=== PATIENT | female | born 1985 | race Caucasian/White ===

== ENCOUNTER 2016-03-29 15:55 | Emergency (ER) | payer BC ==
[2016-03-29 16:09] VITALS: BP 139/95
--- NOTE | 2016-03-29 16:47 | UC ---
Skin Complaint HPI - HPI Summary HPI Summary: The patient comes in today for: 1. Rash: Onset: 3.5 weeks. Palliative/provocative: Prednisone helped it. When she is hot, the rash is worse as is the itching. Quality: Itching. Region: Upper thighs, across the chest and stomach. Severity: 8/10, but she is not scratching much. Time: Constant, with flares. Associated symptoms: Previous treatment: She had a treatment of Prednisone (strength per pill unknown), but she was on a 6-5-4-3-2-1 dosing. She finished this 4 days ago. This treatment helped. But, the rash has come back. She has taken Benadryl at night, but she wakes up itching. Topical hydrocortisone did not help. She had blood work done last week for checking the liver studies and these were OK. Itching: Present. Previous diagnosis: Not mentioned. Initially, it was thought to be PUPPP by the commercial credit specialist, but the nurse practitioner said that it was not PUPPP, but "an allergic reaction." She is 30-31 weeks . * - History of Current Complaint Chief Complaint: UCRash Time Seen by Provider: 03/29/16 16:36 Stated Complaint: RASH Hx Obtained From: Patient Hx Last Menstrual Period: July of 2015 ?: Yes - Allergy/Home Medications Allergies/Adverse Reactions: Allergies Allergy/AdvReac Type Severity Reaction Status Date / Time Acetaminophen [From Vicodin] Allergy PUFFY EYES Verified 03/29/16 16:09 Hydrocodone [From Vicodin] Allergy PUFFY EYES Verified 03/29/16 16:09 Pseudoephedrine Allergy HEART RACES Verified 03/29/16 16:09 [From Sudafed] SEASONAL ENVIRONMENT/HAYFEVER Allergy ITCHY Uncoded 03/15/15 10:07 WATERY EYES, SNEEZING Home Medications: Home Medications Cortisone Cream 2%* PRN 03/29/16 [History] Vitamin TAB* 1 tab PO DAILY 03/29/16 [History Confirmed 03/29/16] diPHENhydraMINE PO* [Benadryl PO*] 25 mg PO PRN 03/29/16 [History] Review of Systems Constitutional: Negative Skin: Rash Eyes: Negative ENT: Negative Respiratory: Negative Cardiovascular: Negative Gastrointestinal: Negative Genitourinary: Negative All Other Systems Reviewed And Are Negative: Yes PMH/Surg Hx/FS Hx/Imm Hx Endocrine History Of: Denies: Diabetes, Thyroid Disease, Hyperthyroidism, Hypothyroidism, Dyslipidemia Cardiovascular History Of: Denies: Cardiac Disorders, Hypertension, Pacemaker/ICD, Myocardial Infarction , Congestive Heart Failure, Atrial Fibrillation, Deep Vein Thrombosis, Bleeding Disorders Respiratory History Of: Denies: COPD, Asthma, Bronchitis, Pneumonia, Pulmonary Embolism GI/ History Of: Denies: Gastroesophageal Reflux, Ulcer, Gastrointestinal Bleed, Gall Bladder Disease, Kidney Stones, Diverticulitis, Renal Disease, Urosepsis Neurological History Of: Denies: TIA, CVA, Dementia, Seizures, Migraine Psychological History Of: Reports: Anxiety - NO MEDS, Depression Denies: Bipolar Disorder, Schizophrenia, Post Traumatic Stress Disorder Cancer History Of: Denies: Lung Cancer, Colorectal Cancer, Breast Cancer, Prostate Cancer, Cervical Cancer Other History Of: Negative For: HIV, Hepatitis B, Hepatitis C, Anticoagulant Therapy - Surgical History Surgical History: Yes Surgery Procedure, Year, and Place: 2003 WISDOM TEETH EXTRACTION, OFFICE, D&C - Family History Known Family History: Positive: Hypertension Negative: Cardiac Disease - Social History Occupation: Employed Full-time Alcohol Use: None Alcohol Amount: NONE SINCE Substance Use Type: None Smoking Status (MU): Former Smoker Amount Used/How Often: OCCASIONALLY IN COLLEGE Have You Smoked in the Last Year: No Physical Exam Triage Information Reviewed: Yes Appearance: Well-Appearing, No Pain Distress, Well-Nourished Vital Signs: Initial Vital Signs Temp 99 F 03/29/16 16:04 Pulse 103 03/29/16 16:04 Resp 16 03/29/16 16:04 BP 139/95 03/29/16 16:04 Pulse Ox 100 03/29/16 16:04 Vital Signs Reviewed: Yes Eyes: Positive: Conjunctiva Clear. Negative: Discharge ENT: Positive: Hearing grossly normal. Negative: Pharyngeal erythema, Nasal congestion, Nasal drainage, TM bulging, TM dull, TM red, Tonsillar swelling, Tonsillar exudate Dental: Negative: Gross Decay/Caries @, Dental Fracture @ Neck: Positive: Supple, Nontender, No Lymphadenopathy. Negative: Nuchal Rigidity Respiratory: Positive: Chest non-tender, Lungs clear, No respiratory distress, No accessory muscle use. Negative: Crackles, Wheezing Cardiovascular: Positive: RRR, No Murmur Abdomen Description: Positive: Nontender, No Organomegaly, Soft. Negative: Distended, Guarding Musculoskeletal: Positive: Strength Intact, ROM Intact Neurological: Positive: Alert, Muscle Tone Normal Psychological: Positive: Age Appropriate Behavior, Consolable Skin: Positive: rashes - She has erythematous papules/plaques that are 2-3 mm in size and some confluent. Most of the rash is below the breasts. There are a few isolated lesions on her chest. None on the face or extremities. Some in the groin area and some on the abdomen. Course/Dx - Diagnoses Provider Diagnoses: Pruritic urticarial papules and plaques of . Discharge - Discharge Plan Condition: Stable Disposition: HOME Patient Education Materials: Pruritic Urticarial Papules and Plaques of (ED) Additional Instructions: Please contact your SENIOR SAFETY SUPPORT MANAGER provider as soon as you can for evaluation and treatment.
[2016-03-29] MEDS ORDERED: predniSONE TAB* 10 MG PO ONE (17:07)
== END 2016-03-29 17:27 | disposition home or self-care (01) ==
LOC: UCEAST 15:55
DX: R23.8 Other skin changes (principal); O26.86 Pruritic urticarial papules and plaques of pregnancy (PUPPP); Z3A.31 31 weeks gestation of pregnancy; Z88.6 Allergy status to analgesic agent; Z88.8 Allergy status to other drugs, medicaments and biological substances; Z87.891 Personal history of nicotine dependence
CPT/HCPCS: 99212; G0463; J7512

== ENCOUNTER 2016-06-06 15:30 | Inpatient (IN) | payer BC ==
[2016-06-06 18:19] LABS: Hematocrit 39 % (35-47); Hemoglobin 13.1 g/dl (12.0-16.0); Mean Corpuscular HGB Conc 34 g/dl (31-36); Mean Corpuscular Hemoglobin 29 pg (27-31); Mean Corpuscular Volume 86 fL (80-97); Mean Platelet Volume 8 um3 (7.4-10.4); Red Blood Count 4.57 10^6/ul (4.0-5.4); Red Cell Distribution Width 14 % (10.5-15)
[2016-06-06 18:34] LABS: Albumin 3.6 g/dL (3.2-5.2); BUN/Creatinine Ratio 17.3 (8-20); Calcium 9.4 mg/dL (8.6-10.3); EGFR African American 116.7 (>60); EGFR Non-African American 90.7 (>60); Globulin 2.8 g/dL (2-4); Potassium 3.8 mmol/L (3.5-5.0); Total Bilirubin 0.2 mg/dL (0.2-1.0); Total Protein 6.4 g/dL (6.4-8.9); Uric Acid 7.6 mg/dL (2.3-6.6)
[2016-06-06] MEDS ORDERED: OBEPIDURAL* 250 ML ONE (18:35)
[2016-06-06] MEDS ORDERED: fentaNYL* 50 MCG/ML 2 ML VIAL (100 MCG VIAL) ONE (18:36)
[2016-06-06] MEDS ORDERED: Sodium Citrate/Citric Acid* 15 ML UDC PO PRN (19:16)
[2016-06-06] MEDS ORDERED: Phenylephrine IV* 40 MCG/ML 10 ML SYRINGE IV PUSH PRN ×2 (19:16)
[2016-06-06] MEDS ORDERED: Famotidine TAB* 20 MG PO PRN (19:16)
[2016-06-06] MEDS ORDERED: OBEPIDURAL* 250 ML EPIDURAL SCH (20:00)
[2016-06-07] MEDS ORDERED: Oxytocin in LR* 20 UNITS/1,000 ML BAG IVPB ONE (03:30)
[2016-06-07] MEDS ORDERED: Glycerin ADULT SUPP PR PRN (03:58)
[2016-06-07] MEDS ORDERED: Acetaminophen TAB* 325 MG PO PRN (03:58)
[2016-06-07] MEDS ORDERED: Oxytocin in LR* 20 UNITS/1,000 ML BAG IVPB SCH (04:00)
[2016-06-07] MEDS: Ibuprofen TAB* 600 MG PO PRN ×3 (04:37→17:30)
[2016-06-07] MEDS: Witch Hazel PAD* JAR TOPICAL PRN (08:05)
[2016-06-07] MEDS: Dibucaine 1% 28.35 GM TUBE PR PRN ×2 (08:08→20:33)
[2016-06-07] MEDS ORDERED: Measles, Mumps,Rubella VACC* 0.5 ML/VIAL SUBCUT ONE (09:00)
[2016-06-07] MEDS: Docusate CAP* 100 MG PO SCH ×3 (09:32→20:33)
[2016-06-08] MEDS: Ibuprofen TAB* 600 MG PO PRN ×4 (00:28→22:16)
[2016-06-08 07:30] LABS: Hematocrit 31 % (35-47); Hemoglobin 10.3 g/dl (12.0-16.0); Mean Corpuscular HGB Conc 33 g/dl (31-36); Mean Corpuscular Hemoglobin 29 pg (27-31); Mean Corpuscular Volume 87 fL (80-97); Mean Platelet Volume 8 um3 (7.4-10.4); Red Blood Count 3.57 10^6/ul (4.0-5.4); Red Cell Distribution Width 14 % (10.5-15); White Blood Count 11.6 10^3/ul (3.5-10.8)
[2016-06-08] MEDS ORDERED: Ferrous Gluconate TAB* 324 MG TAB PO SCH (09:00)
[2016-06-08] MEDS: Docusate CAP* 100 MG PO SCH ×3 (09:10→21:36)
[2016-06-08] MEDS: Witch Hazel PAD* JAR TOPICAL PRN (13:41)
[2016-06-08] MEDS: oxyCODONE/Acetamin 5/325 MG* TAB PO PRN (21:36)
[2016-06-09] MEDS: oxyCODONE/Acetamin 5/325 MG* TAB PO PRN (06:22)
[2016-06-09] MEDS: Ibuprofen TAB* 600 MG PO PRN (06:22)
[2016-06-09] MEDS: Witch Hazel PAD* JAR TOPICAL PRN (06:23)
[2016-06-09] MEDS: Dibucaine 1% 28.35 GM TUBE PR PRN (06:23)
[2016-06-09 08:42] VITALS: BP 121/60
[2016-06-09] MEDS: Docusate CAP* 100 MG PO SCH (09:31)
--- NOTE | 2016-06-09 10:39 | PTEDU ---
Patient Name: CHANTELL MURILLO CHIDICHANTELL selected video: Never Ever Shake a Baby to view on 06/09/2016 at 10:38:30 AM [id number]
== END 2016-06-09 12:00 | disposition home or self-care (01) | DRG 560 ==
LOC: MCHOBOUT 15:30 → MCHOB 16:35
PROVIDERS: ADMIT Midwife; ATTEND Midwife
PROC: 10E0XZZ Delivery of Products of Conception, External Approach (ICD-10-PCS; principal; 2016-06-07)
PROC: 0KQM0ZZ Repair Perineum Muscle, Open Approach (ICD-10-PCS; 2016-06-07)
PROC: 3E0234Z Introduction of Serum, Toxoid and Vaccine into Muscle, Percutaneous Approach (ICD-10-PCS; 2016-06-08)
DX: O48.0 Post-term pregnancy (principal); O70.1 Second degree perineal laceration during delivery; Z37.0 Single live birth; Z3A.40 40 weeks gestation of pregnancy; Z88.5 Allergy status to narcotic agent; Z23 Encounter for immunization
CPT/HCPCS: 36415; 80053; 84550; 85025; 85027; 86850; 86900; 86901; A9270-GY; J3010